=== PATIENT | female | born 1960 | race Caucasian/White ===

== ENCOUNTER → 2019-04-10 | Outpatient (CLI) | payer OTHER ==
[~2019-04-10] MED LIST: ASCO500 PO; BIEST/PROGEST TOP; Calcium 500 MG1 EACH PO; DAILY MULTIPLE1 EACH PO; DHEA 10 MG TAB1 EACH PO; FISH1000 PO; LANS15EC PO; VITAMIN D35000 UNIT PO
== END | disposition home or self-care (01) ==
LOC: LAB SHORT 08:37 → LAB EV 08:37
DX: N39.0 Urinary tract infection, site not specified (principal)
CPT/HCPCS: 87077; 87086; 87186